=== PATIENT | male | born 1980 | race African-American/Black ===

== ENCOUNTER 2019-03-11 14:00 | Emergency (ER) | payer SELFPAY ==
[~2019-03-11] VITALS: Ht 180.3 cm; Wt 155.0 kg
[2019-03-11 14:12] VITALS: BP 143/85
[2019-03-11 17:00] LABS: *AMPHETAMINES SCREEN URINE NEGATIVE (NEGATIVE); *BARBITURATES SCREEN URINE NEGATIVE (NEGATIVE); *BENZODIAZEPINES SCREEN URINE NEGATIVE (NEGATIVE); *COCAINE SCREEN URINE NEGATIVE (NEGATIVE)
[2019-03-11 17:01] LABS: CANNABINOID URINE SCREEN NEGATIVE (NEGATIVE); METHADONE URINE SCREEN NEGATIVE (NEGATIVE); OPIATES URINE SCREEN NEGATIVE (NEGATIVE); PHENCYCLIDINE URINE SCREEN NEGATIVE (NEGATIVE)
== END 2019-03-11 17:05 | disposition left against medical advice (07) ==
LOC: ER 14:40
DX: R00.2 Palpitations (principal); F12.10 Cannabis abuse, uncomplicated
CPT/HCPCS: 71045; 80305; 93005; 99284